=== PATIENT | female | born 1970 | race African-American/Black ===

== ENCOUNTER 2024-08-08 11:30 | Emergency (ER) | payer OTHER ==
[2024-08-08 11:54] VITALS: BP 147/66; PULSE 76; RESP 18; TEMP 98.3; BMI 32.4
[2024-08-08] MEDS ORDERED: AMOX TR/POT CLAV 875MG/125MG TABLETS (FP) ONE (12:30)
[2024-08-08] MEDS ORDERED: DIPHTH,PERTUSS(ACELL),TET 0.5 ML DISP.SYRIN IM ONE (12:30)
[2024-08-08] MEDS: AMOX TR/POT CLAV 875MG/125MG TABLETS (FP) PO ONE (12:34)
[2024-08-08] MEDS: DIPHTH,PERTUSS(ACELL),TET 0.5 ML DISP.SYRIN IM ONE (12:34)
[2024-08-08] MEDS ORDERED: IBUPROFEN 600 MG TABLET (FP) PO ONE (12:54)
[2024-08-08] MEDS: IBUPROFEN 600 MG TABLET (FP) PO ONE (12:55)
[2024-08-08 15:21] LABS: HCV DIAGNOSTIC IN-HOUSE W/RFLX NON-REACTIVE (NONREACTIVE)
[2024-08-10 20:13] LABS: HIV INTERPRETATION NEGATIVE (NEGATIVE)
== END 2024-08-08 12:56 | disposition home or self-care (01) ==
LOC: JER 11:30 → JERFT 11:30
PROC: 3E0234Z Introduction of Serum, Toxoid and Vaccine into Muscle, Percutaneous Approach (ICD-10-PCS; principal; 2024-08-08)
DX: S80.01XA Contusion of right knee, initial encounter (principal); S90.414A Abrasion, right lesser toe(s), initial encounter; Z23 Encounter for immunization; W54.0XXA Bitten by dog, initial encounter
CPT/HCPCS: 36415; 86803; 87389; 90471; 90715; 99284-25